=== PATIENT | male | born 1940 | race Caucasian/White ===

== ENCOUNTER 2017-06-04 10:32 | Inpatient (IN) ==
--- NOTE | 2017-06-04 10:58 | Emergency Department Note ---
Disposition Clinical Impression: Ureterolithiasis, Intractable pain Hydronephrosis Qualifiers: Hydronephrosis type: with renal calculous obstruction Qualified Code(s): N13.2 - Hydronephrosis with renal and ureteral calculous obstruction Disposition: Admitted As Inpatient Condition: Fair Referrals: Zach Sidhu Jr, MD [Primary Care Provider] - Forms: ED Satisfaction Letter Time of Disposition: 13:19 General Adult HPI - General Chief complaint: ED Urogenital-Male Stated complaint: UTI,Low back pain,AMS Time Seen by Provider: 06/04/17 10:41 Source: patient, family Limitations: no limitations Nursing Notes Reviewed: Yes Vital Signs Reviewed: Yes - History of Present Illness HPI Narrative: 77y/o male presents with L. flank pain of 1wk duration. Pain began suddenly and has remained constant since onset. Pain is rated a 10/10 at time of exam and is worsened with movement. Pt. states that he is nauseated from the pain and that it results in him vomiting several times a day. He states that he has not experienced flank pain like this before. Admits to dysuria and F/C. Pt. is also having concomitant respiratory symptoms that he does not believe are related to his flank pain. Admits to sore throat and congestion. He states that he went to urgent care days prior and received antibiotics for URI. Flu swab negative and does not remember having a UA at time of evaluation at urgent care. Denies CP, dyspnea, diarrhea. Pain Scale: 10 - Related Data Home Medications Medication Instructions Recorded Confirmed Aspirin 325 mg PO DAILY 06/04/17 06/04/17 Carvedilol [Carvedilol] 12.5 mg PO BID 06/04/17 06/04/17 Clopidogrel [Plavix] 75 mg PO DAILY 06/04/17 06/04/17 Omeprazole [PriLOSEC] 40 mg PO BID 06/04/17 06/04/17 Rosuvastatin Calcium [Rosuvastatin 40 mg PO DAILY 06/04/17 06/04/17 Calcium] amLODIPine [Norvasc] 5 mg PO DAILY 06/04/17 06/04/17 Allergies Allergy/AdvReac Type Severity Reaction Status Date / Time codeine Allergy Hives Verified 06/04/17 13:39 All systems ED: reviewed and negative except as stated. Constitutional: Denies: fever Cardiovascular: Denies: chest pain Gastrointestinal: Reports: abdominal pain, nausea, vomiting. Denies: diarrhea Past Medical History - Past Medical History Attestation: Yes The following information was validated with the patient. Source: patient Medical history: Reports: hypertension, myocardial infarction Psychiatric history: Reports: no psych history - Social History Smoking Status: Never smoker Smokeless Tobacco Status: No Alcohol use: Reports: none Physical Exam Patient with left inguinal tenderness. No palpable masses. Left CVA tenderness. Lungs clear. Nontoxic appearing and afebrile. - General Limitations: no limitations General appearance: alert, in no apparent distress - Head Head exam: atraumatic, normocephalic - Eye Eye exam: Present: normal appearance, PERRL - ENT ENT exam: normal exam, normal oropharynx - Neck Neck exam: Present: normal inspection - Chest Chest inspection: Present: normal inspection, symmetric chest wall rise - Respiratory Respiratory exam: Present: normal lung sounds bilaterally - Cardiovascular Cardiovascular exam: Present: regular rate, normal rhythm, normal heart sounds - Abdominal Exam Abdominal exam: Present: soft, tenderness - Neurological Exam Neurological exam: Present: alert, oriented X3, CN II-XII intact - Psychiatric Psychiatric exam: Present: normal affect - Skin Skin exam: Present: warm, dry Course Course Narrative: Patient is uncomfortable but is in no acute distress. Nontoxic appearing. Basic labs, pain control, and CT scan. We will reevaluate. - Reevaluation(s) Reevaluation #1: Impression resolving severe pain after multiple doses of IV medications. 6 mm stone. There is some white blood cells as well. Concern for her narcotics is significant to control his pain. Do not feel that it would be safe to send him home on this dose of narcotic. Patient will be admitted to the hospitalist with urology consult. Time: 13:17 - Consultations Consultation #1: Dr Armenta to see in consult Time: 13:18 Consultation #2: Patient admitted to Time: 13:29 Vital Signs Temperature 98.2 F 06/04/17 10:37 Pulse Rate 86 06/04/17 10:37 Respiratory Rate 18 06/04/17 10:37 Blood Pressure 125/67 06/04/17 10:37 O2 Sat by Pulse Oximetry 98 06/04/17 10:37 Temperature 98.2 F 06/04/17 10:37 Pulse Rate 93 06/04/17 13:38 Respiratory Rate 16 06/04/17 13:38 Blood Pressure 128/88 06/04/17 13:38 O2 Sat by Pulse Oximetry 97 06/04/17 13:38 Oxygen Delivery Oxygen Delivery Room Air Medical Decision Making - Lab Data Lab results reviewed: Yes I reviewed the patient's lab results. Result diagrams: 06/04/17 11:07 06/04/17 11:07 Lab Results 06/04/17 06/04/17 06/04/17 Range/Units 10:45 11:07 11:07 WBC 15.1 H (4.3-11.1) K/mcL RBC 5.34 (4.19-5.50) M/mcL Hgb 16.3 (12.9-16.9) g/dL Hct 48.1 (37.5-50.1) % MCV 90.1 (83.0-100.0) fL MCH 30.5 (28.0-33.3) pg MCHC 33.9 (31.6-35.5) g/dL RDW 13.7 (11.5-14.5) % Plt Count 148 (140-400) K/mcL MPV 11.1 (9.4-12.4) fL Immature Gran % 0.5 (0-4) % Seg Neutrophils % 71.3 % Lymphocytes % 19.0 % Monocytes % 8.9 % Eosinophils % 0.1 % Basophils % 0.2 % Neutrophils # 10.8 H (1.6-8.9) K/mcL Lymphocytes # 2.9 (0.6-4.6) K/mcL Monocytes # 1.3 (0.0-1.3) K/mcL Eosinophils # 0.0 (0.0-0.6) K/mcL Basophils # 0.0 (0.0-0.2) K/mcL Sodium 135 L (136-145) mEq/L Potassium 4.2 (3.5-5.1) mEq/L Chloride 98 (98-107) mEq/L Carbon Dioxide 24 (23-29) mEq/L BUN 42 H (8-23) mg/dL Creatinine 1.59 H (0.70-1.30) mg/dL Est GFR ( Amer) 51 L (> 60) Est GFR (Non-Af Amer) 42 L (> 60) BUN/Creatinine Ratio 26 (6-26) Glucose 126 H (70-105) mg/dL Calculated Osmolality 292 (280-300) Calcium 9.4 (8.6-10.3) mg/dL Total Bilirubin 1.5 H (0.3-1.0) mg/dL AST 22 (13-39) Units/L ALT 17 (7-52) Units/L Alkaline Phosphatase 77 (34-104) Units/L Serum Total Protein 7.1 (6.4-8.9) g/dL Albumin 4.0 (3.5-5.7) g/dL Globulin 3.1 (2.4-3.5) g/dL Albumin/Globulin Ratio 1.3 (1.1-2.2) Lipase (11-82) Units/L Urine Color Dark Yellow (Yellow) Urine Clarity Turbid A (Clear) Urine pH 5.0 (5.0-8.0) pH Units Ur Specific [place] 1.025 (1.010-1.025) Urine Protein 30 H (Neg-Trace) mg/dL Urine Glucose (UA) Normal (Normal) mg/dL Urine Ketones Trace H (Negative) mg/dL Urine Blood Large H (Negative) Urine Nitrite Negative (Negative) Urine Bilirubin Moderate H (Negative) Urine Urobilinogen Normal (Normal) mg/dL Ur Leukocyte Esterase Small H (Negative) Urine Microscopic RBC TNTC H (0-3) per hpf Urine Microscopic WBC 5-15 H (0-3) per hpf Ur Squamous Epith Cells Many H (None-Few) per lpf Amorphous Sediment Many H (Few) Urine Bacteria None Seen (None-Few) per hpf Hyaline Casts Few (None-Few) per lpf Granular Casts Few H (None Seen) per lpf RBC Casts Few H (None Seen) per lpf Ur Culture Indicated? NO. (NO) 06/04/17 Range/Units 11:07 WBC (4.3-11.1) K/mcL RBC (4.19-5.50) M/mcL Hgb (12.9-16.9) g/dL Hct (37.5-50.1) % MCV (83.0-100.0) fL MCH (28.0-33.3) pg MCHC (31.6-35.5) g/dL RDW (11.5-14.5) % Plt Count (140-400) K/mcL MPV (9.4-12.4) fL Immature Gran % (0-4) % Seg Neutrophils % % Lymphocytes % % Monocytes % % Eosinophils % % Basophils % % Neutrophils # (1.6-8.9) K/mcL Lymphocytes # (0.6-4.6) K/mcL Monocytes # (0.0-1.3) K/mcL Eosinophils # (0.0-0.6) K/mcL Basophils # (0.0-0.2) K/mcL Sodium (136-145) mEq/L Potassium (3.5-5.1) mEq/L Chloride (98-107) mEq/L Carbon Dioxide (23-29) mEq/L BUN (8-23) mg/dL Creatinine (0.70-1.30) mg/dL Est GFR ( Amer) (> 60) Est GFR (Non-Af Amer) (> 60) BUN/Creatinine Ratio (6-26) Glucose (70-105) mg/dL Calculated Osmolality (280-300) Calcium (8.6-10.3) mg/dL Total Bilirubin (0.3-1.0) mg/dL AST (13-39) Units/L ALT (7-52) Units/L Alkaline Phosphatase (34-104) Units/L Serum Total Protein (6.4-8.9) g/dL Albumin (3.5-5.7) g/dL Globulin (2.4-3.5) g/dL Albumin/Globulin Ratio (1.1-2.2) Lipase 15 (11-82) Units/L Urine Color (Yellow) Urine Clarity (Clear) Urine pH (5.0-8.0) pH Units Ur Specific [place] (1.010-1.025) Urine Protein (Neg-Trace) mg/dL Urine Glucose (UA) (Normal) mg/dL Urine Ketones (Negative) mg/dL Urine Blood (Negative) Urine Nitrite (Negative) Urine Bilirubin (Negative) Urine Urobilinogen (Normal) mg/dL Ur Leukocyte Esterase (Negative) Urine Microscopic RBC (0-3) per hpf Urine Microscopic WBC (0-3) per hpf Ur Squamous Epith Cells (None-Few) per lpf Amorphous Sediment (Few) Urine Bacteria (None-Few) per hpf Hyaline Casts (None-Few) per lpf Granular Casts (None Seen) per lpf RBC Casts (None Seen) per lpf Ur Culture Indicated? (NO) - Radiology Data Radiology results reviewed: Yes I reviewed the patient's radiology results. Abdomen/Pelvis CT 06/04/17 10:58 IMPRESSION: 1. 0.6 cm calculus in the proximal left ureter with associated [id number] hydronephrosis and perinephric and periureteral stranding. Trace ascites in the pelvis. 2. 0.5 cm nonobstructing left renal calculus. 3. Indeterminate 1.6 cm hyperdense lesion in the upper pole of the right kidney, which could reflect a hemorrhagic cyst. Consider follow-up renal MRI once acute issues have resolved. 4. Prostatic hypertrophy. Although the bladder is not well-distended, there is circumferential bladder wall thickening with associated diverticulum suggestive of bladder outlet obstruction. 5. Small fat containing left paramidline ventral hernia. D/ / 06/04/2017 13:15:50 Sarah Barksdale MD / [email or web address] Interpreting Provider: Sarah Barksdale MD - EKG Data EKG #1 EKG attestation: Yes I reviewed and interpreted this EKG. EKG results narrative: Normal sinus at 87. Poor R-wave progression. Inferior Q waves. Lateral ST depressions. No old for comparison. Left axis deviation. Critical Care Time Critical Care Time: No
[2017-06-04] MEDS ORDERED: Ondansetron 4 MG/2 ML VIAL IVP ONE (11:00)
[2017-06-04] MEDS ORDERED: *HR* FentaNYL (PF) 100 MCG/2 ML VIAL IVP ONE (11:00)
[2017-06-04 11:01] LABS: Bilirubin,Urine Moderate (Negative); Blood,Urine Large (Negative); Clarity,Urine Turbid (Clear); Color,Urine Dark Yellow (Yellow); Glucose,Urine (UA) Normal (Normal); Ketones,Urine Trace mg/dL (Negative); Leukocyte Esterase,Urine Small (Negative); Nitrite,Urine Negative (Negative); Protein,Urine 30 mg/dL (Neg-Trace); Specific Gravity,Urine 1.025 (1.010-1.025); Urobilinogen,Urine Normal (Normal)
[2017-06-04 11:04] LABS: Bacteria,Urine None Seen per hpf (None-Few); Squamous Epithelial Cell,Urine Many per lpf (None-Few)
[2017-06-04 11:12] LABS: Hyaline Casts,Urine Few per lpf (None-Few); RBC,Urine TNTC per hpf (0-3)
[2017-06-04 11:13] LABS: Amorphous Sediment,Urine Many (Few); Granular Casts,Urine Few per lpf (None Seen); Red Blood Cell Casts,Urine Few per lpf (None Seen)
[2017-06-04 11:21] LABS: Basophils % 0.2 %; Eosinophils % 0.1 %; Hematocrit 48.1 % (37.5-50.1); Hemoglobin 16.3 g/dL (12.9-16.9); Immature Granulocytes % 0.5 % (0-4); Lymphocytes # 2.9 K/mcL (0.6-4.6); Mean Corpuscular HGB Conc 33.9 g/dL (31.6-35.5); Mean Corpuscular Hemoglobin 30.5 pg (28.0-33.3); Mean Corpuscular Volume 90.1 fL (83.0-100.0); Mean Platelet Volume 11.1 fL (9.4-12.4); Monocytes # 1.3 K/mcL (0.0-1.3); Monocytes % 8.9 %; Neutrophils # 10.8 K/mcL (1.6-8.9); Platelet Count 148 K/mcL (140-400); Red Blood Count 5.34 M/mcL (4.19-5.50); Red Cell Distribution Width 13.7 % (11.5-14.5); Segmented Neutrophils % 71.3 %
[2017-06-04] MEDS ORDERED: *HR* HYDROmorphone 2 MG/ML SYRINGE IVP ONE ×2 (11:49→12:36)
[2017-06-04 11:52] LABS: Albumin/Globulin Ratio 1.3 (1.1-2.2); Bilirubin,Total 1.5 mg/dL (0.3-1.0); Calcium 9.4 mg/dL (8.6-10.3); Globulin 3.1 g/dL (2.4-3.5); Potassium 4.2 mEq/L (3.5-5.1); Total Protein 7.1 g/dL (6.4-8.9)
[2017-06-04] MEDS ORDERED: cefTRIAXone 1,000 MG in Water for inj. (sterile) 10 ML IVP ONE (13:49)
[2017-06-04] MEDS ORDERED: *HR* HYDROmorphone (PF) 1 MG/ML SYRINGE IVP STA (15:45)
--- NOTE | 2017-06-04 16:04 | Urology - Consult Note ---
Date of Encounter: 06/04/17 Time of Encounter: 16:02 - Assessment and Plan (1) Elevated serum creatinine Current Visit: Yes Status: Acute Assessment and plan: Likely from some dehydration as well as obstructing stone. Expect to improve with IV fluids as well as stone extraction tomorrow. (2) Leukocytosis Current Visit: Yes Status: Acute Assessment and plan: Unsure if related to infection or stress related. Patient did get IV antibiotic in the ER. Qualifiers: Leukocytosis type: unspecified Qualified Code(s): D72.829 - Elevated white blood cell count, unspecified (3) Hydronephrosis Current Visit: Yes Status: Acute Assessment and plan: Patient brought in for IV fluids and IV antibodies. Patient also with need for IV pain medicine. Patient will be scheduled for left ureteroscopic stone extraction tomorrow if patient unable to pass stone. Informed consent was obtained with the patient's [id number] and present. Qualifiers: Hydronephrosis type: with ureteral calculous obstruction Qualified Code(s) : N13.2 - Hydronephrosis with renal and ureteral calculous obstruction (4) Ureterolithiasis Current Visit: Yes Status: Acute Assessment and plan: Patient with mild to moderate hydronephrosis proximal to stone. Plan on continued IV fluids. Patient will be taken to the operating room tomorrow morning if patient unable to pass stone tonight. Urology CN:[email or web address] Consult date: 06/04/17 Reason for consult Urology: Hydronephrosis Requesting physician: Natalia Alexander History of present illness: Jesus is a 77-year-old male with a history of left-sided flank pain for the past 3-4 days. Patient came to the emergency department today and was found to have a left proximal 6 mm stone as well as a smaller left renal stone. Pain was poorly controlled with IV pain medicine. Patient had elevated serum creatinine as well as a slightly elevated serum WBC count. Patient denies any fevers. No nausea or vomiting but is not taking much by mouth intake. Patient has a significant cardiac history. His last stent was greater than 1 year ago. Patient with mild to moderate left hydronephrosis proximal to the stone. Past Med Surg Social Fam HX - Past Medical History Medical history: hypertension, myocardial infarction Psychiatric history: no psych history - Social History Smoking Status: Never smoker Smokeless Tobacco Status: No Alcohol use: none Medications and Allergies Aspirin 325 mg PO DAILY 06/04/17 [History] Carvedilol [Carvedilol] 12.5 mg PO BID 06/04/17 [History] Clopidogrel [Plavix] 75 mg PO DAILY 06/04/17 [History] Omeprazole [PriLOSEC] 40 mg PO BID 06/04/17 [History] Rosuvastatin Calcium [Rosuvastatin Calcium] 40 mg PO DAILY 06/04/17 [History] amLODIPine [Norvasc] 5 mg PO DAILY 06/04/17 [History] 3 Allergy/AdvReac Type Severity Reaction Status Date / Time codeine Allergy Hives Verified 06/04/17 13:39 Review of Systems - Constitutional no chills - EENT Nose, mouth and throat: no dizziness - Cardiovascular no chest pain - Respiratory no cough - Gastrointestinal abdominal pain - Genitourinary as per HPI - Musculoskeletal back pain - Integumentary no erythema - Neurological no confusion - Psychiatric no anxiety - Hematologic/Lymphatic no easy bleeding - Allergic/Immunologic no throat swelling Exam Initial Vital Signs Temp Pulse Resp BP Pulse Ox 98.2 F 86 18 125/67 98 06/04/17 10:37 06/04/17 10:37 06/04/17 10:37 06/04/17 10:37 06/04/17 10:37 - General physical appearance Present: well developed - Neck Present: no masses - Respiratory Present: normal respiratory effort - Cardiovascular Cardiovascular exam IM: RRR - Abdomen Abdomen: Present: soft - Integumentary Present: no rash - Neurologic Present: normal coordination - Musculoskeletal Present: normal gait Urology Results - Labs 06/04/17 11:07 06/04/17 11:07 Abnormal lab results WBC 15.1 K/mcL (4.3-11.1) H 06/04/17 11:07 Neutrophils # 10.8 K/mcL (1.6-8.9) H 06/04/17 11:07 Sodium 135 mEq/L (136-145) L 06/04/17 11:07 BUN 42 mg/dL (8-23) H 06/04/17 11:07 Creatinine 1.59 mg/dL (0.70-1.30) H 06/04/17 11:07 Est GFR ( Amer) 51 (> 60) L 06/04/17 11:07 Est GFR (Non-Af Amer) 42 (> 60) L 06/04/17 11:07 Glucose 126 mg/dL (70-105) H 06/04/17 11:07 Total Bilirubin 1.5 mg/dL (0.3-1.0) H 06/04/17 11:07 Urine Clarity Turbid (Clear) A 06/04/17 10:45 Urine Protein 30 mg/dL (Neg-Trace) H 06/04/17 10:45 Urine Ketones Trace mg/dL (Negative) H 06/04/17 10:45 Urine Blood Large (Negative) H 06/04/17 10:45 Urine Bilirubin Moderate (Negative) H 06/04/17 10:45 Ur Leukocyte Esterase Small (Negative) H 06/04/17 10:45 Urine Microscopic RBC TNTC per hpf (0-3) H 06/04/17 10:45 Urine Microscopic WBC 5-15 per hpf (0-3) H 06/04/17 10:45 Ur Squamous Epith Cells Many per lpf (None-Few) H 06/04/17 10:45 Amorphous Sediment Many (Few) H 06/04/17 10:45 Granular Casts Few per lpf (None Seen) H 06/04/17 10:45 RBC Casts Few per lpf (None Seen) H 06/04/17 10:45 All other labs normal. - Imaging CT scan - abdomen: image reviewed CT scan - pelvis: image reviewed Consult Discharge Plan - Plan Referrals: Zach Sidhu Jr, MD [Primary Care Provider] -
--- NOTE | 2017-06-04 16:40 | Internal Med History&Physical ---
Date of Encounter: 06/05/17 Time of Encounter: 16:34 Assessment and Plan (1) Ureterolithiasis Current visit: Yes Status: Acute 77/male Significant cardiac history. Admitted with left-sided flank pain. CT abdomen: 6 we will admit her left-sided obstructed stone with the moderate hydronephrosis proximally. 5 mm nonobstructing renal calculus Persistent pain only responding to the intravenous opioids. Noted a perinephric stranding on CT scan. Plan: Admit as inpatient. Blood culture/urine culture. Intravenous antibiotics: Ceftriaxone 1 g every 24 hours. Urology consult: Trial of IV hydration, if there is no stone discharge than possible intervention in the operating room tomorrow morning Urology input appreciated. Pain control: Intravenous opioids. Of note: I have examined this patient in the emergency room #5. Patient's was sitting next to him. Plan of care was explained to the patient and his at length. (2) Hydronephrosis Current visit: Yes Status: Acute See above Qualifiers: Hydronephrosis type: with ureteral calculous obstruction Qualified Code(s) : N13.2 - Hydronephrosis with renal and ureteral calculous obstruction (3) Intractable pain Current visit: Yes Status: Acute See above (4) Elevated serum creatinine Current visit: Yes Status: Acute This is likely secondary to dehydration/hydronephrosis. Trial of IV fluids and we will repeat labs tomorrow morning (5) DVT prophylaxis Current visit: Yes Status: Acute scd Medical decision making: This patient has a moderate to severe risk of worsening in spite of being on appropriate treatment/medications due to Underlying comorbid conditions Internal Medicine - H&P: HPI Chief complaint: left flank pain Admitted From: Emergency Dept Plans for Post Hospital Care: Home History of present illness: PCP: Dr Thea Rangel PMH: HTN, CAD, HPI: 77-year-old gentleman, complaints of left-sided ongoing flank pain for past 3-4 days. The pain was gradually started as a dull aching in nature which was worsened to persistent, pinpricking, nonradiating, localized, worsens with movement and relieved only with the pain medication. Patient initially tried home remedies for this pain but the pain was so consistent in getting worse that his told him to come to the emergency room for further evaluation. Patient was evaluated in the emergency room. Patient denies chest pain, shortness of breath, nausea, vomiting, dizziness or diarrhea. Workup in the emergency room: Basic labs were drawn. Noted that patient has a elevated white blood cell count. CT scan of the abdomen shows 6 mm obstructed or renal calculi on the left side with the proximal hydronephrosis. Also noted that patient has elevated creatinine. Reason for admission: 6 mm obstructed left-sided renal stone with proximal hydronephrosis associated with mild urinary tract infection. Family history: Noncontributory Past Med Surg Social Fam HX - Past Medical History Medical history: hypertension, myocardial infarction Psychiatric history: no psych history - Social History Smoking Status: Never smoker Smokeless Tobacco Status: No Alcohol use: none Internal Medicine - H&P: Meds Aspirin 325 mg PO DAILY 06/04/17 [History] Carvedilol [Carvedilol] 12.5 mg PO BID 06/04/17 [History] Clopidogrel [Plavix] 75 mg PO DAILY 06/04/17 [History] Omeprazole [PriLOSEC] 40 mg PO BID 06/04/17 [History] Rosuvastatin Calcium [Rosuvastatin Calcium] 40 mg PO DAILY 06/04/17 [History] amLODIPine [Norvasc] 5 mg PO DAILY 06/04/17 [History] 3 Allergy/AdvReac Type Severity Reaction Status Date / Time codeine Allergy Hives Verified 06/04/17 13:39 All Systems PM: A 10-system review of systems was performed and is negative for pertinent findings except as documented above in the HPI. - Constitutional Constitutional: no chills, no fever(s), no night sweats - EENT Eyes: no change in vision, no discharge, no pain, no photophobia Ears: no ear discharge, no ear pain, no tinnitus Nose, mouth and throat: no dysphagia, no nasal discharge, no neck pain, no sore throat - Cardiovascular Cardiovascular ROS IM: no chest pain, no diaphoresis, no dyspnea, no lightheadedness, no palpitations, no syncope - Respiratory Respiratory: no cough, no dyspnea, no wheezing, no excessive phlegm production - Gastrointestinal Gastrointestinal: abdominal pain, excessive flatus, nausea, other, no diarrhea, no hematemesis, no hematochezia, no melena, no vomiting - Musculoskeletal Musculoskeletal ROS IM: no numbness, no tingling - Integumentary Integumentary IM: no rash, no unusual bruising - Neurological Neurological ROS: no confusion, no convulsions, no focal weakness, no numbness, no tingling, no tremor(s) - Hematologic/Lymphatic Hematologic/Lymphatic: no easy bruising - Constitutional Vitals: Temp Pulse Resp BP Pulse Ox 98.2 F 93 18 148/96 97 06/04/17 10:37 06/04/17 13:38 06/04/17 15:51 06/04/17 15:51 06/04/17 13:38 General appearance: Present: A&O X 3, pleasant, no acute distress, answers questions appropriately - Head Head exam: Present: atraumatic, normocephalic - Eye Eye exam: Present: PERRL, conjuntiva pink, sclera anicteric Pupils: Present: PERRL - Neck Neck exam general surgery: Present: supple, trachea midline. Absent: lymphadenopathy - Respiratory Respiratory exam: Present: CTAB. Absent: accessory muscle use, rales, rhonchi, wheezes - Cardiovascular Cardiovascular exam: Present: RRR, +S1, +S2. Absent: diastolic murmur, gallop, rubs, systolic murmur - GI/Abdominal GI/Abdominal exam: Present: normal bowel sounds, soft, no peritoneal signs. Absent: distended, tenderness - Extremities Exam Extremities exam: Present: warm, radial pulses palpable and symmetrical. Absent : calf tenderness, cyanotic, pedal edema - Neurological Exam Neurological exam: Present: CN II-XII intact, oriented X3, no focal deficits. Absent: pronater drift, facial droop, speech deficit - Skin Skin exam: Present: dry, intact Internal Med - H&P Results - Labs CBC & Chem 7: 06/05/17 01:04 06/05/17 01:04
[2017-06-04] MEDS ORDERED: Naloxone 0.4 MG/ML INJ IVP PRN (16:51)
[2017-06-04] MEDS ORDERED: 0.9 % Sodium Chloride 1,000 ML IVC SCH (17:00)
[2017-06-04] MEDS: *HR* HYDROmorphone (PF) 1 MG/ML SYRINGE IVP PRN ×2 (17:14→22:21)
[2017-06-05] MEDS ORDERED: *HR* HYDROmorphone (PF) 1 MG/ML SYRINGE IVP ONE (00:02)
[2017-06-05 01:42] LABS: Basophils % 0.2 %; Eosinophils % 0.2 %; Hematocrit 45.9 % (37.5-50.1); Immature Granulocytes % 0.5 % (0-4); Lymphocytes % 23.2 %; Mean Corpuscular HGB Conc 32.7 g/dL (31.6-35.5); Mean Corpuscular Hemoglobin 30.1 pg (28.0-33.3); Mean Platelet Volume 11.4 fL (9.4-12.4); Monocytes # 1.3 K/mcL (0.0-1.3); Monocytes % 10.4 %; Neutrophils # 8.3 K/mcL (1.6-8.9); Platelet Count 134 K/mcL (140-400); Red Blood Count 4.99 M/mcL (4.19-5.50); Red Cell Distribution Width 13.5 % (11.5-14.5); Segmented Neutrophils % 65.5 %
[2017-06-05 01:58] LABS: Albumin 3.4 g/dL (3.5-5.7); Albumin/Globulin Ratio 1.4 (1.1-2.2); Calcium 8.7 mg/dL (8.6-10.3); Chol/HDL Ratio 4.9 (0-4.9); Globulin 2.4 g/dL (2.4-3.5); Magnesium 2.2 mg/dL (1.6-2.6); Phosphorous 4.1 mg/dL (2.7-4.5); Potassium 3.7 mEq/L (3.5-5.1); Total Protein 5.8 g/dL (6.4-8.9)
[2017-06-05] MEDS: *HR* HYDROmorphone (PF) 1 MG/ML SYRINGE IVP PRN ×4 (04:20→20:42)
--- NOTE | 2017-06-05 07:12 | Urology Progress Note ---
Date of Encounter: 06/05/17 Time of Encounter: 07:11 - Assessment and Plan (1) Elevated serum creatinine Current Visit: Yes Status: Acute (2) Leukocytosis Current Visit: Yes Status: Acute Qualifiers: Leukocytosis type: unspecified Qualified Code(s): D72.829 - Elevated white blood cell count, unspecified (3) Hydronephrosis Current Visit: Yes Status: Acute Qualifiers: Hydronephrosis type: with ureteral calculous obstruction Qualified Code(s) : N13.2 - Hydronephrosis with renal and ureteral calculous obstruction (4) Ureterolithiasis Current Visit: Yes Status: Acute Assessment and plan: to OR today for stone extraction. Progress Note Narrative: patient seen. still with left flank pain. did not pass stone Objective Initial Vital Signs Temp Pulse Resp BP Pulse Ox 98.2 F 86 18 125/67 98 06/04/17 10:37 06/04/17 10:37 06/04/17 10:37 06/04/17 10:37 06/04/17 10:37 - General physical appearance Present: well developed - Abdomen Present: soft - Labs 06/05/17 01:04 06/05/17 01:04 Diabetes panel 06/05/17 Range/Units 01:04 Sodium 133 L (136-145) mEq/L Potassium 3.7 (3.5-5.1) mEq/L Chloride 99 (98-107) mEq/L Carbon Dioxide 25 (23-29) mEq/L BUN 45 H (8-23) mg/dL Creatinine 1.57 H (0.70-1.30) mg/dL Glucose 108 H (70-105) mg/dL Calcium 8.7 (8.6-10.3) mg/dL AST 18 (13-39) Units/L ALT 15 (7-52) Units/L Alkaline Phosphatase 69 (34-104) Units/L Albumin 3.4 L (3.5-5.7) g/dL Triglycerides 97 (< 150) mg/dL HDL Cholesterol 37 L (40-59) mg/dL Calcium panel 06/05/17 Range/Units 01:04 Calcium 8.7 (8.6-10.3) mg/dL Phosphorus 4.1 (2.7-4.5) mg/dL Albumin 3.4 L (3.5-5.7) g/dL Pituitary panel 06/05/17 Range/Units 01:04 Sodium 133 L (136-145) mEq/L Potassium 3.7 (3.5-5.1) mEq/L Chloride 99 (98-107) mEq/L Carbon Dioxide 25 (23-29) mEq/L BUN 45 H (8-23) mg/dL Creatinine 1.57 H (0.70-1.30) mg/dL Glucose 108 H (70-105) mg/dL Calcium 8.7 (8.6-10.3) mg/dL Adrenal panel 06/05/17 Range/Units 01:04 Sodium 133 L (136-145) mEq/L Potassium 3.7 (3.5-5.1) mEq/L Chloride 99 (98-107) mEq/L Carbon Dioxide 25 (23-29) mEq/L BUN 45 H (8-23) mg/dL Creatinine 1.57 H (0.70-1.30) mg/dL Glucose 108 H (70-105) mg/dL Calcium 8.7 (8.6-10.3) mg/dL Total Bilirubin 1.0 (0.3-1.0) mg/dL AST 18 (13-39) Units/L ALT 15 (7-52) Units/L Alkaline Phosphatase 69 (34-104) Units/L Albumin 3.4 L (3.5-5.7) g/dL Consult Discharge Plan - Plan Referrals: Zach Sidhu Jr, MD [Primary Care Provider] -
[2017-06-05] MEDS ORDERED: *HR* FentaNYL (PF) 100 MCG/2 ML VIAL ONE (07:38)
[2017-06-05] MEDS ORDERED: *HR* Propofol 200 MG/20 ML VIAL IVP ONE (07:38)
[2017-06-05] MEDS ORDERED: Lidocaine -MPF 2% 2 ML VIAL ONE (08:00)
[2017-06-05] MEDS ORDERED: Ondansetron 4 MG/2 ML VIAL ONE (08:00)
[2017-06-05] MEDS ORDERED: Dexamethasone 4 MG/ML VIAL ONE (08:00)
[2017-06-05] MEDS ORDERED: *HR* HYDROmorphone (PF) 1 MG/ML SYRINGE IVP PRN (08:04)
[2017-06-05] MEDS ORDERED: *HR* Promethazine 25 MG/ML VIAL IVP PRN (08:04)
--- NOTE | 2017-06-05 08:09 | Anesthesia Evaluation PreOp ---
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 HX Other Medical History: Renal (stones), GERD Anesthesia History: Past Anesthesia (CABG, right CEA, hernia,heidi), Problems ( severe PONV) Alcohol Use: none Drug use: none Medications and Allergies Aspirin 325 mg PO DAILY 06/04/17 [History] Carvedilol [Carvedilol] 12.5 mg PO BID 06/04/17 [History] Clopidogrel [Plavix] 75 mg PO DAILY 06/04/17 [History] Omeprazole [PriLOSEC] 40 mg PO BID 06/04/17 [History] Rosuvastatin Calcium [Rosuvastatin Calcium] 40 mg PO DAILY 06/04/17 [History] amLODIPine [Norvasc] 5 mg PO DAILY 06/04/17 [History] 3 Allergy/AdvReac Type Severity Reaction Status Date / Time codeine Allergy Hives Verified 06/04/17 13:39 - Meds/Allergy Pre-op Review Medications Reviewed: Yes Allergies Reviewed: Yes Beta Blockers on Current Med List: Yes (not on MAR, but on H&P) Anesthesia Results - Labs 06/05/17 01:04 06/05/17 01:04 Anesthesia Exam Selected Entries 06/05/17 07:04 Temperature 98.2 F Pulse Rate 97 Blood Pressure 143/74 O2 Sat by Pulse Oximetry 98 Weight: 75.5kg NPO (# of Hours): 8 - HEENT Pupil (Motor): EOMI Mallampati: II Teeth: Missing Oral Opening: Greater than 3 - 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
[2017-06-05] MEDS ORDERED: Scopolamine Patch 1.5 MG PATCH.TD72 TD ONE (08:13)
--- NOTE | 2017-06-05 09:30 | Operative Note ---
Date of procedure: 06/05/17 Pre-op diagnosis: left proximal ureteral stone Post-op diagnosis: same Procedure: Left ureteroscopy, left 6 x 28 cm ureteral stent placement Anesthesia: GETA Surgeon: New Armenta Was there an bilingual office assistant present: No Estimated blood loss (cc): 0 Specimen: None Condition: stable Disposition: PACU Procedure in Detail: Patient was prepped and draped in normal sterile fashion. Timeout procedure performed. I then inserted the cystoscope into the patient's bladder. Cannulated the left ureteral orifice using a Glidewire. At this point I then attempted to place the semirigid ureteroscope into the left ureter. I was only able to negotiate this and the distal portion of the left ureter. This was secondary to narrow left ureter. I then removed the scope and attempts to dilate the distal ureter using 8/10 dilation sheath but was unable to even dilate the distal ureter using the 8 portion of the dilation sheath. I then placed a 6 x 28 cm ureteral stent into the left kidney with good curl seen in the left kidney and in the bladder. The bladder was drained procedure was ended. Patient tolerated well was taken to PACU in stable condition Patient will be brought back to the operative room in 2 to 3 weeks for left ureteroscopic stone extraction.
--- NOTE | 2017-06-05 09:53 | Anesthesia Evaluation Post Op ---
Date of Encounter: 06/05/17 Time of Encounter: 09:53 - Vital Signs Vital Signs: Selected Entries 06/05/17 09:26 06/05/17 09:46 Temperature 97.9 F Pulse Rate 87 Respiratory Rate 16 Blood Pressure 133/73 O2 Sat by Pulse Oximetry 96 - Lungs Lungs: Clear Ascult./Percussion - Airway Airway: Non-obstructed - Cardiovascular Regular Rate - Mental Status Mental Status: Alert & Oriented, Answers Appropriately - Pain Pain Scale: 1 Pain Scale used: Numeric (1 - 10) - Nausea Vomiting Nausea Vomiting: Not Present - Hydration Hydration: Ice chips, Able to void - Discharge PostOp Status: Transfer Patient to floor
[2017-06-05] MEDS ORDERED: 0.9 % Sodium Chloride 1,000 ML IVC SCH (10:11)
[2017-06-05] MEDS ORDERED: Naloxone 0.4 MG/ML INJ IVP PRN (10:11)
--- NOTE | 2017-06-05 10:39 | Electrocardiograph Report ---
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
--- NOTE | 2017-06-05 15:36 | Internal Med Progress Note ---
Date of Encounter: 06/05/17 Time of Encounter: 15:34 - Assessment and plan (1) Ureterolithiasis Current Visit: Yes Status: Acute Assessment and plan: Patient has a 6 mm obstructive stent on the left side with hydronephrosis. This morning patient underwent stone extraction. The stone was unable to get extracted and hence stent was placed. Patient is presently on antibiotics. We will continue same. Repeat labs tomorrow morning. If patient is clinically stable then home tomorrow morning. (2) Hydronephrosis Current Visit: Yes Status: Acute Assessment and plan: Patient is presently post procedure for stent placement to decompress hydronephrosis Qualifiers: Hydronephrosis type: with ureteral calculous obstruction Qualified Code(s) : N13.2 - Hydronephrosis with renal and ureteral calculous obstruction (3) Intractable pain Current Visit: Yes Status: Acute Assessment and plan: His pain is very well controlled (4) Elevated serum creatinine Current Visit: Yes Status: Acute Assessment and plan: We will repeat creatinine tomorrow (5) DVT prophylaxis Current Visit: Yes Status: Acute - Subjective Interval history: Patient seen and examined. Chart reviewed. Patient denies any pain. Patient had a procedure with urology and he underwent stent placement - Constitutional Vitals: Temp Pulse Resp BP Pulse Ox 97.8 F 86 16 114/64 96 06/05/17 13:41 06/05/17 13:41 06/05/17 13:41 06/05/17 13:41 06/05/17 13:41 General appearance: Present: A&O X 3, pleasant, no acute distress, answers questions appropriately - Head Head exam: Present: atraumatic, normocephalic - Eye Eye exam: Present: PERRL, conjuntiva pink, sclera anicteric Pupils: Present: PERRL - Neck Neck exam general surgery: Present: supple, trachea midline. Absent: lymphadenopathy - Respiratory Respiratory exam: Present: CTAB. Absent: accessory muscle use, rales, rhonchi, wheezes - Cardiovascular Cardiovascular exam: Present: RRR, +S1, +S2. Absent: diastolic murmur, gallop, rubs, systolic murmur - GI/Abdominal GI/Abdominal exam: Present: normal bowel sounds, soft, no peritoneal signs. Absent: distended, tenderness - Extremities Exam Extremities exam: Present: warm, radial pulses palpable and symmetrical. Absent : calf tenderness, cyanotic, pedal edema - Neurological Exam Neurological exam: Present: CN II-XII intact, oriented X3, no focal deficits. Absent: pronater drift, facial droop, speech deficit - Skin Skin exam: Present: dry, intact Internal Medicine: Result - Labs CBC & Chem 7: 06/05/17 01:04 06/05/17 01:04 Labs: Short CBC 06/05/17 Range/Units 01:04 WBC 12.7 H (4.3-11.1) K/mcL Hgb 15.0 (12.9-16.9) g/dL Hct 45.9 (37.5-50.1) % Plt Count 134 L (140-400) K/mcL Neutrophils # 8.3 (1.6-8.9) K/mcL BMP 06/05/17 01:04 Sodium 133 L Potassium 3.7 Chloride 99 Carbon Dioxide 25 BUN 45 H Creatinine 1.57 H Glucose 108 H Calcium 8.7 Cardiac Enzymes 06/04/17 06/05/17 06/05/17 Range/Units 17:37 01:04 06:46 Troponin I 0.03 0.03 0.03 (< 0.04) ng/mL Liver Function 06/05/17 Range/Units 01:04 Total Bilirubin 1.0 (0.3-1.0) mg/dL AST 18 (13-39) Units/L ALT 15 (7-52) Units/L Alkaline Phosphatase 69 (34-104) Units/L Albumin 3.4 L (3.5-5.7) g/dL - Impressions Impressions Fluoroscopy 06/05/17 09:00 IMPRESSION: Intraprocedural fluoroscopic spot images as above. See separate procedure report for more information. D/ / Andrei Kapadia MD / Andrei Kapadia MD Interpreting Provider: Andrei Kapadia MD X-Ray 06/05/17 09:00 IMPRESSION: Intraprocedural fluoroscopic spot images as above. See separate procedure report for more information. D/ / Andrei Kapadia MD / Andrei Kapadia MD Interpreting Provider: Andrei Kapadia MD Consult Discharge Plan - Plan Referrals: Zach Sidhu Jr, MD [Primary Care Provider] -
[2017-06-05] MEDS ORDERED: cefTRIAXone 1,000 MG in Water for inj. (sterile) 20 ML 10 ML IVP SCH ×2 (17:00)
[2017-06-06] MEDS: *HR* HYDROmorphone (PF) 1 MG/ML SYRINGE IVP PRN ×2 (03:55→09:27)
[2017-06-06 05:55] LABS: Hematocrit 43.5 % (37.5-50.1); Hemoglobin 14.6 g/dL (12.9-16.9); Mean Corpuscular HGB Conc 33.6 g/dL (31.6-35.5); Mean Corpuscular Hemoglobin 30.4 pg (28.0-33.3); Mean Corpuscular Volume 90.6 fL (83.0-100.0); Mean Platelet Volume 11.4 fL (9.4-12.4); Platelet Count 153 K/mcL (140-400); Red Cell Distribution Width 13.6 % (11.5-14.5); Segmented Neutrophils % 73.9 %
[2017-06-06 05:56] LABS: Basophils % 0.1 %; Immature Granulocytes % 0.4 % (0-4); Lymphocytes # 2.7 K/mcL (0.6-4.6); Lymphocytes % 19.7 %; Monocytes # 0.8 K/mcL (0.0-1.3); Monocytes % 5.9 %
[2017-06-06 06:32] LABS: Alanine Aminotransferase 16 Units/L (7-52); Albumin 3.4 g/dL (3.5-5.7); Albumin/Globulin Ratio 1.2 (1.1-2.2); Alkaline Phosphatase 65 Units/L (34-104); Aspartate Amino Transferase 17 Units/L (13-39); BUN/Creatinine Ratio 36 (6-26); Bilirubin,Total 0.6 mg/dL (0.3-1.0); Blood Urea Nitrogen 44 mg/dL (8-23); Calcium 8.8 mg/dL (8.6-10.3); Carbon Dioxide 28 mEq/L (23-29); Chloride 101 mEq/L (98-107); Globulin 2.8 g/dL (2.4-3.5); Glucose 210 mg/dL (70-105); Osmolality,Calculated 299 (280-300); Potassium 4.3 mEq/L (3.5-5.1); Sodium 136 mEq/L (136-145); Total Protein 6.2 g/dL (6.4-8.9); eGFR For African Americans > 60 (> 60); eGFR For Non-African Americans 58 (> 60)
[2017-06-06 08:55] VITALS: BP 121/73
[2017-06-06] MEDS ORDERED: Aspirin 325 MG TABLET PO SCH (09:00)
[2017-06-06] MEDS ORDERED: amLODIPine 5 MG TABLET PO SCH (09:00)
--- NOTE | 2017-06-06 09:00 | Discharge Summary ---
Date of Encounter: 06/15/17 Time of Encounter: 08:56 - Discharge Diagnosis (1) Ureterolithiasis Priority: Primary Status: Acute (2) Hydronephrosis Priority: Primary Status: Acute Qualifiers: Hydronephrosis type: with ureteral calculous obstruction Qualified Code(s) : N13.2 - Hydronephrosis with renal and ureteral calculous obstruction (3) Intractable pain Priority: Primary Status: Acute (4) Elevated serum creatinine Priority: Primary Status: Acute (5) DVT prophylaxis Priority: Secondary Status: Acute - Discharge Medications Prescriptions: Ciprofloxacin [Cipro] 500 mg PO BID #10 tablet Tramadol HCl [Ultram] 50 mg PO BID PRN #10 tab PRN Reason: Pain Home Medications: Aspirin 325 mg PO DAILY 06/04/17 [History] Carvedilol 12.5 mg PO BID 06/04/17 [History] Clopidogrel [Plavix] 75 mg PO DAILY 06/04/17 [History] Omeprazole [PriLOSEC] 40 mg PO BID 06/04/17 [History] Rosuvastatin Calcium 40 mg PO DAILY 06/04/17 [History] amLODIPine [Norvasc] 5 mg PO DAILY 06/04/17 [History] Ciprofloxacin [Cipro] 500 mg PO BID #10 tablet 06/06/17 [Rx] Tramadol HCl [Ultram] 50 mg PO BID PRN #10 tab 06/06/17 [Rx] Allergies/Adverse Reactions: 3 Allergy/AdvReac Type Severity Reaction Status Date / Time codeine Allergy Hives Verified 06/04/17 13:39 Date of admission: 06/04/17 16:51 Primary care physician: Zach Sidhu Jr, MD Discharging clinician: Jl Miller - Patient Status Disposition: Home, Self-Care Condition: Fair Functional capacity at discharge: independent ambulation Overall status at discharge: patient is progressing back to baseline - Discharge Instructions Instructions: Hydronephrosis (DC) Follow Up With: New Armenta MD [Partnered Physician] - (Office will call patient at home with date and time of next surgery. Please call the office with any questions you may have. Thank you) - Diet and Activity Activity: increase activity as tolerated Diet: low fat, low cholesterol Interval History: PCP: Dr Sidhu Brief PMH: HTN, CAD, HPI: 77-year-old gentleman, complaints of left-sided ongoing flank pain for past 3-4 days. The pain was gradually started as a dull aching in nature which was worsened to persistent, pinpricking, nonradiating, localized, worsens with movement and relieved only with the pain medication. Patient initially tried home remedies for this pain but the pain was so consistent in getting worse that his told him to come to the emergency room for further evaluation. Patient was evaluated in the emergency room. Patient denies chest pain, shortness of breath, nausea, vomiting, dizziness or diarrhea. Workup in the emergency room: Basic labs were drawn. Noted that patient has a elevated white blood cell count. CT scan of the abdomen shows 6 mm obstructed or renal calculi on the left side with the proximal hydronephrosis. Also noted that patient has elevated creatinine. Reason for admission: 6 mm obstructed left-sided renal stone with proximal hydronephrosis associated with mild urinary tract infection. Hospital course: Hospital course: Patient was hospitalized. He was started on broad-spectrum antibiotics ceftriaxone. Patient was evaluated by urology. Patient underwent left ureteroscopy. It was unable to extract stone. A 6 x 28 cm ureteral stent was placed in the left kidney. Urology will call patient for a follow-up in next week and the plan is to get patient back to operating room in 2-3 weeks for left ureteroscopic stone extraction. This morning I evaluated the patient. Patient complains of occasional pain on micturition. Patient denies any chest pain, nausea, vomiting, abdominal pain, dizziness or diarrhea. Patient also complains of occasional hematuria. I explained patient this can be secondary to the stent placement. I recommended patient that we should observe him for one day and repeat labs tomorrow morning. Patient refused to stay in the hospital. Patient claims that he will come back to hospital if his hematuria gets worse. MICHAEL Newman was with me in the room during conversation. Plan: Patient will go home today with ciprofloxacin 500 mg twice a day for 5 days. I have given patient a Tramadol 50 mg twice a day for 5 days. Patient will follow up with urology as outpatient. Patient will follow up with his primary care provider as outpatient. At the time of discharge and all questions answered. Patient does not have any questions or concerns update or recommendations at the time of discharge. - Time Spent with Patient Total time spent providing and/or coordinating discharge services: - Constitutional Vitals: Temp Pulse Resp BP Pulse Ox 98.2 F 83 16 121/73 99 06/06/17 08:51 06/06/17 08:51 06/06/17 08:51 06/06/17 08:51 06/06/17 08:51 General appearance: Present: A&O X 3, pleasant, no acute distress, answers questions appropriately - Head Head exam: Present: atraumatic, normocephalic - Eye Eye exam: Present: PERRL, conjuntiva pink, sclera anicteric Pupils: Present: PERRL - Neck Neck exam general surgery: Present: supple, trachea midline. Absent: lymphadenopathy - Respiratory Respiratory exam: Present: CTAB. Absent: accessory muscle use, rales, rhonchi, wheezes - Cardiovascular Cardiovascular exam: Present: RRR, +S1, +S2. Absent: diastolic murmur, gallop, rubs, systolic murmur - GI/Abdominal GI/Abdominal exam: Present: normal bowel sounds, soft, no peritoneal signs. Absent: distended, tenderness - Extremities Exam Extremities exam: Present: warm, radial pulses palpable and symmetrical. Absent : calf tenderness, cyanotic, pedal edema - Neurological Exam Neurological exam: Present: CN II-XII intact, oriented X3, no focal deficits. Absent: pronater drift, facial droop, speech deficit - Skin Skin exam: Present: dry, intact
== END 2017-06-06 11:52 | disposition home or self-care (01) | DRG 694 ==
LOC: 3ANU 10:32 → EMEROO 10:32 → 3ANU 15:56
PROVIDERS: ADMIT Internal Medicine; ATTEND Student in an Organized Health Care Education/Training Program